=== PATIENT | male | born 1985 | race Caucasian/White ===

== ENCOUNTER 2022-03-17 21:18 | Emergency (ER) | payer OTHER, SELFPAY ==
[2022-03-17 21:20] VITALS: BP 133/85; PULSE 98; RESP 18; TEMP 37.2; O2SAT 99
--- NOTE | 2022-03-17 21:47 | ED.EXTPRO ---
HPI - Extremity Problem General Chief complaint: Extremity Problem,Nontraumatic Stated complaint: R leg Time Seen by Provider: 03/17/22 21:31 Source: patient History of Present Illness HPI Narrative: Patient presents with pain and redness to his right lower extremity. Ports his symptoms for the past 2 days getting progressively worse and is increasing swelling edema and pain. Also reports his leg feels warm. He did report subjective fevers yesterday but took some ibuprofen. Symptoms are worse today he wanted come to the ER for evaluation. Denies any focal numbness or weakness. He does report he bumped his leg on his tailgate 3 days ago but did not think much of it. Related Data Allergies Allergy/AdvReac Type Severity Reaction Status Date / Time clindamycin Allergy Unknown Unverified 07/02/15 12:32 Review of Systems Review of Systems: CONSTITUTIONAL: Subjective fevers EYES: Denies visual changes, redness, or discharge. ENT: Denies rhinorrhea, congestion, sore throat, or otalgia. CARDIOVASCULAR: Denies chest pain, palpitations, or edema. RESPIRATORY: Denies cough or dyspnea. GASTROINTESTINAL: Denies abdominal pain, nausea, vomiting, or diarrhea. GENITOURINARY: Denies dysuria or hematuria. SKIN: Denies rash or itching. MUSCULOSKELETAL: Denies back pain, joint pain, or myalgia. NEUROLOGIC: Denies headache, numbness, dizziness, or weakness. PSYCHIATRIC: Denies anxiety or depression. All systems reviewed & are unremarkable except as noted in HPI and below PMFSH Past Medical History Medical History (Updated 03/17/22 @ 21:51 by Michael Dill MD) Patient denies significant medical history Social History Social History (Updated 03/17/22 @ 21:48 by Michael Dill MD) Smoking status: Never smoker Alcohol intake: current Exam Narrative: GENERAL: Well-appearing, well-nourished, and in no acute distress. HEAD: Normocephalic, atraumatic. EYES: PERRLA and EOMI. ENT: Nares clear, no rhinorrhea or epistaxis. Mucous membranes moist. NECK: Supple. No masses. No JVD EXTREMITIES: Normal range of motion. Large area of erythema and warmth on the anterior aspect of the right lower leg there is a central abrasion there is no focal fluid collections no purulent drainage no fluctuance. SKIN: Warm, dry, no rash. NEURO: No focal deficits. Alert and oriented x3. PSYCH: Normal mood and affect. Course Vital Signs Vital signs: Vital Signs Temperature 37.2 C 03/17/22 21:20 Pulse Rate 98 03/17/22 21:20 Respiratory Rate 18 03/17/22 21:20 Blood Pressure 133/85 03/17/22 21:20 Pulse Oximetry 99 03/17/22 21:20 Temperature 37.2 C 03/17/22 21:20 Pulse Rate 98 03/17/22 21:20 Respiratory Rate 18 03/17/22 21:20 Blood Pressure 133/85 03/17/22 21:20 Pulse Oximetry 99 03/17/22 21:20 MDM - Extremity (Nontraumatic) MDM Narrative Medical decision making narrative: H&P as above, vss, pt looks clinically well, exam with warmth erythema and edema to the right lower extremity, llabs/img considered, symptomatic relief available as needed, on reevaluation pt continues to looks clinically well. Exam is most suggestive of cellulitis, dns abscess, necrotizing soft tissue infection, osteomyelitis, severe sepsis. plan to tx/monitor as op w/ pcm f/u findings/plan discussed with pt, pt agree/comfortable with plan, return precautions given Discharge Plan Discharge Clinical Impression: Cellulitis Qualifiers: Site of cellulitis: extremity Site of cellulitis of extremity: lower extremity Laterality: right Qualified Code(s): L03.115 - Cellulitis of right lower limb Patient Disposition: Home, Self-Care Condition: Improved Instructions: Antibiotic Form, Cellulitis (ED) Additional Instructions: Please return if your symptoms worsen or fail to improve. If you develop a fever, can not eat/drink anything or if you have any other concerns. Prescriptions: New cephalexin 500 mg capsule 500 mg PO QID 5 Days
[2022-03-17] MEDS: CEPHALEXIN 500 MG CAPSULE PO (21:53)
== END 2022-03-17 22:04 | disposition home or self-care (01) ==
LOC: ANHED 22:01
PROVIDERS: Emergency Provider Emergency Medicine
DX: L03.115 Cellulitis of right lower limb (principal)
CPT/HCPCS: 99283; A9270

== ENCOUNTER 2023-03-28 18:23 | Emergency (ER) | payer OTHER, SELFPAY ==
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
[2023-03-28 18:27] VITALS: BP 121/102; PULSE 84; RESP 16; TEMP 36.9; O2SAT 98
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
== END 2023-03-28 20:05 | disposition home or self-care (01) ==
PROVIDERS: Emergency Provider Physician Assistant
DX: S83.91XA Sprain of unspecified site of right knee, initial encounter (principal); V86.56XA Driver of dirt bike or motor/cross bike injured in nontraffic accident, initial encounter
CPT/HCPCS: 73562; 99283

== ENCOUNTER 2024-06-24 08:18 | Outpatient (CLI) | payer OTHER, SELFPAY ==
--- NOTE | ~2024-06-24 | US_ITS ---
COMPLETE ABDOMINAL ULTRASOUND Ordering provider: Dorothy Booker APRN History: . R10.31 - Right lower quadrant pain . Comparison: None. FINDINGS: LIVER: Normal size and echotexture. No perihepatic fluid collections are identified. Hyperechoic focu s is seen measuring 1 x 1 x 1.1 cm. Most likely hemangioma follow-up advised. GALLBLADDER: Unremarkable. No evidence for stones, sludge, gallbladder wall thickening or pericholecy stic fluid collections. A negative sonographic Horn's sign was noted. BILIARY DUCTS: No evidence for intra or extrahepatic biliary dilation. Common bile duct measures 5 mm in diameter which is within normal limits. PANCREAS: Not well demonstrated. SPLEEN: Normal size, echotexture and contour and measures 8.6 cm in length. KIDNEYS: Right measures 9.5x 4.6x 4.9 cm in length and the left 9.2x 4x 5.4 cm in length. There is no evidence for hydronephrosis, solid renal mass, renal calculi or perinephric fluid collections. No re nal cysts. UPPER ABDOMINAL AORTA: Normal in caliber. IVC: Patent. FREE FLUID: None. No definite abnormality seen in the right lower quadrant. IMPRESSION: Hyperechoic area in the liver most likely hemangioma. Otherwise, Unremarkable complete ultrasound of the abdomen. Reviewed, dictated and finalized at location A. IMPRESSION: Hyperechoic area in the liver most likely hemangioma. Otherwise, Unremarkable c omplete ultrasound of the abdomen.
== END 2024-06-24 08:19 ==
LOC: GOSHIMG 08:19
PROVIDERS: PCP Family Medicine; Visit Provider Nurse Practitioner Adult Health
DX: R10.31 Right lower quadrant pain (principal)
CPT/HCPCS: 76700

== ENCOUNTER 2024-07-12 00:42 | Day surgery (SDC) | payer OTHER, SELFPAY ==
[2024-06-28 12:38] VITALS: BMI 30.7
[2024-07-12 08:43] VITALS: BP 132/85; PULSE 64; RESP 18; TEMP 36.2; O2SAT 100; BMI 30.1
[2024-07-12] MEDS: LACTATED RINGERS 1,000 ML 150 ML IV CONT (09:01)
--- NOTE | 2024-07-12 09:17 | WPDANESEPPF ---
Anes - Initial Pre Proc Eval Procedure: Operation Date: 07/12/24 10:00 Proposed Procedures p Colonoscopy - Greg Sagastume MD Date/Time: 07/12/24 09:17 Surgeon: Greg Sagastume MD Pre Op Diagnosis: Melena Patient Data Age: 38 Gender: M Height: 1.68 m Weight: 84.7 kg Last Vital Signs Temp 97.1 F L 07/12/24 08:43 Pulse 64 07/12/24 08:43 Resp 18 07/12/24 08:43 BP 132/85 07/12/24 08:43 Pulse Ox 100 07/12/24 08:43 O2 Del Method Room Air 07/12/24 08:43 Allergies Allergy/AdvReac Type Severity Reaction Status Date / Time clindamycin Allergy Unknown Unknown Verified 07/12/24 08:49 Home Medications Medication Instructions Recorded Confirmed Type No Home Medications 04/10/23 07/12/24 History Patient hx anesthesia problems: none Family hx anesthesia problems: none Results Review: All pre-operative results and documents have been reviewed as part of the pre-operative evaluation. [facility] Past Medical History Medical History Effusion, right knee Hematochezia Lipid screening Patient denies significant medical history Right lower quadrant pain Thyroid disorder screen Family History Family History Grandparent Colon cancer Social History Social History Smoking status: Never smoker Alcohol intake: current Drinks per week: 2 Substance use: never Substance use type: does not use Do You Feel Safe in your Home?: Yes Lack of Transportation: No Lack of Food: Never True Current Housing: I Have Housing Concerned About Future Housing: No Difficulty Paying Gas/Electric Bills: No Difficulty Paying for Meds: No Currently Unemployed: No Education: Trade/Vocational Certificate Difficulty w/ Childcare or Family Care: No Living arrangements: with family Occupation/Education: occupation Additional occupation/education comments: [employer] Gender identity (if verbalized by the patient): Male Spiritual care concerns: No Anes - Eval Final PreProcedure Day of Procedure 07/12/24 09:17 Patient weight: normal Heart: regular rate and rhythm Lungs: clear to auscultation Airway: Mallampati scale Neurological: alert and oriented Last oral intake: >/= 8 hours ASA classification: II Emergent: no Anesthetic plan: delay Anesthesia type and monitoring: general and standard monitoring Results Review: All pre-operative results and documents have been reviewed as part of the pre-operative evaluation. Obesity, BMI 30. Hx of abdominal pain, now for colonoscopy. Informed Consent: The patient's anesthetic plan and its attendant risks and benefits were discussed with the patient/family/POA. Questions were solicited and answers provided to the satisfaction of the patient/family/POA.
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
[2024-07-12 09:42] VITALS: BP 100/68; PULSE 72; RESP 16; O2SAT 97
[2024-07-12 09:52] VITALS: BP 113/72; PULSE 70; RESP 18; O2SAT 99
[2024-07-12 10:02] VITALS: BP 113/76; PULSE 74; RESP 20; O2SAT 100
== END 2024-07-12 10:11 | disposition home or self-care (01) ==
PROVIDERS: PCP Family Medicine; Visit Provider Internal Medicine Gastroenterology
PROC: 0DJD8ZZ Inspection of Lower Intestinal Tract, Via Natural or Artificial Opening Endoscopic (ICD-10-PCS; CPT 45378; principal; 2024-07-12 10:00)
DX: D12.4 Benign neoplasm of descending colon (principal); K64.8 Other hemorrhoids
CPT/HCPCS: 45385; 88305; J1596; J2704; J7120

== ENCOUNTER 2024-09-08 09:00 | Emergency (ER) | payer OTHER, SELFPAY ==
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
[2024-09-08 09:16] VITALS: BP 130/91; PULSE 69; RESP 16; TEMP 36.8; O2SAT 99
[2024-09-08 09:50] LABS: EDSTREPNEGPOS1 Negative (Negative)
== END 2024-09-08 09:50 | disposition home or self-care (01) ==
PROVIDERS: Emergency Provider Nurse Practitioner; PCP Family Medicine
DX: J06.9 Acute upper respiratory infection, unspecified (principal); R09.82 Postnasal drip
CPT/HCPCS: 87081; 87880; 99213; G0463

== ENCOUNTER 2024-09-12 08:34 | Outpatient (CLI) | payer OTHER, SELFPAY ==
--- NOTE | ~2024-09-12 | US_ITS ---
EXAMINATION: US scrotum doppler DATE: 09/12/2024 09:01 INDICATION: Right Testicular pain (radiating from the groin into the right testicle) TECHNIQUE: Sonographic evaluation of the scrotum was performed assessing grayscale appearance and col or Doppler flow. Spectral Doppler evaluation was also performed. COMPARISON: None. FINDINGS: RIGHT TESTICLE: The right testicle measures 5 x 3.5 x 2.6 cm. Arterial and venous flow are present. RIGHT EPIDIDYMIS: The right epididymis measures 14 mm Pre-Valsalva vasculature measurement less than 3 mm. LEFT TESTICLE: The left testicle measures 5 x 3.2 x 2.9 cm. Arterial and venous flow are demonstrated. LEFT EPIDIDYMIS: The left epididymis measures 6 mm. Pre-Valsalva vasculature measurement less than 3 mm. Incidentally noted is a spontaneously reducible fat-containing right inguinal hernia IMPRESSION: Incidentally noted is a spontaneously reducible fat-containing right inguinal hernia. Otherwise, unremarkable sonographic evaluation of the scrotum, as detailed above. Given that the patient describes his testicular pain on the right as radiating from his groin, perhap s further evaluation regarding possible right inguinal hernia repair would be helpful. Reviewed, dictated and finalized at location A. IMPRESSION: Incidentally noted is a spontaneously reducible fat-containing right inguinal h ernia. Otherwise, unremarkable sonographic evaluation of the scrotum, as detailed abov e. Given that the patient describes his testicular pain on the right as radiating from his groin, perhaps further evaluation regarding possible right inguinal he rnia repair would be helpful.
== END 2024-09-12 08:35 | disposition home or self-care (01) ==
LOC: GOSHIMG 08:35
PROVIDERS: PCP Family Medicine; Visit Provider Family Medicine
DX: N50.819 Testicular pain, unspecified (principal)
CPT/HCPCS: 76870; 93976

== ENCOUNTER 2024-10-27 13:34 | Emergency (ER) | payer OTHER, SELFPAY ==
--- NOTE | ~2024-10-27 | CT_ITS ---
EXAMINATION: CT abdomen pelvis w con DATE: 10/27/2024 14:50 INDICATION: Left lower quadrant abdominal pain for 3 days TECHNIQUE: Computed tomography (CT) of the abdomen and pelvis was performed with 100 CC Omnipaque 350 intravenous contrast. Automated exposure control and iterative reconstruction technique were employe d. Exam dose: 422.98 mGy-cm total exam DLP. COMPARISON: 06/24/2024 complete abdominal ultrasound FINDINGS: An approximately 9 mm subtle hypoattenuating area is noted in the right hepatic lobe, which may correspond to a similar size hyperechoic sonographic focus noted 06/24/2044, possibly a small any ngioma. The liver is otherwise unremarkable. The gallbladder appears normal. No bile duct or pancreatic duct dilatation. No pancreatic mass lesion or calcification. Normal splenic size. Normal morphology of the adrenal glands. 1.3 cm upper pole right renal cyst and very small lower pole right renal probable cyst. The kidneys a re otherwise unremarkable. No urinary tract calculus or hydroureteronephrosis. Normal caliber of the abdominal aorta. No intraperitoneal or retroperitoneal or pelvic mass lesion or adenopathy or ascites. Normal appendix. There is focal pericolic soft tissue fat infiltration at the junction of the distal descending and pr oximal sigmoid colon, suggesting mild focal uncomplicated acute diverticulitis. No bowel obstruction or intraperitoneal free air. The urinary bladder is unremarkable. Small fat-containing right inguinal hernia. Small fat-containing umbilical hernia. No suspicious osteolytic or osteoblastic lesion. IMPRESSION: Mild pericolic fat stranding at junction of distal descending and proximal sigmoid colon , suggesting mild uncomplicated diverticulitis 1.3 cm upper pole right renal cyst, very small lower pole right renal cyst Normal appendix Probable 9 mm hepatic hemangioma Reviewed, dictated and finalized at [facility]. Reviewed, dictated and finalized at [facility]. S OFFICER IMPRESSION: Mild pericolic fat stranding at junction of distal descending and proximal sigmoid colon, suggesting mild uncomplicated diverticulitis 1.3 cm upper pole right renal cyst, very small lower pole right renal cyst Normal appendix Probable 9 mm hepatic hemangioma
[2024-10-27 13:35] VITALS: BP 131/85; PULSE 66; RESP 18; TEMP 36.7; O2SAT 99
--- NOTE | 2024-10-27 13:36 | ED.ABDPAIN ---
HPI - Abdominal Pain General Chief Complaint: Abdominal Pain Stated Complaint: pain in groin area Time Seen by Provider: 10/27/24 13:36 Source: patient Mode of arrival: ambulatory Limitations: no limitations History of Present Illness HPI narrative: patient is a 38-year-old male with left lower quadrant / left lower pelvic / groin pain for the past 3-4 days. It is sharp in nature and is painful on movement of the body. He has a hernia on the right side which has repair next year. MD elicited complaint: abdominal pain ( Left lower quadrant) Pertinent past history: other ( Right-sided inguinal hernia) Onset (ago): day(s) (2-3) Pain Consistency: intermittent Location: LLQ, pelvis ( left) and groin ( left) Severity: moderate Pain scale (0-10): 7 Quality: sharp Radiation: none Migration to: no migration Exacerbating factors: movement Relieving factors: rest Context: confirms history of similar episodes ( on the right side of) Associated symptoms: denies other symptoms Treatments prior to arrival: other ( none) Related Data Allergies Allergy/AdvReac Type Severity Reaction Status Date / Time clindamycin Allergy Unknown Unknown Verified 10/27/24 13:45 Review of Systems Review of Systems: All systems reviewed & are unremarkable except as noted in HPI and below Constitutional: Constitutional: Reports no additional constitutional complaints Eyes: Eyes: Reports no additional eye complaints ENT: Reports system reviewed and no additional complaints, except as documented Cardiovascular: Cardiovascular: Reports no additional cardiovascular complaints Respiratory: Respiratory: Reports no additional respiratory complaints Gastrointestinal: Gastrointestinal: Reports no additional gastrointestinal complaints Genitourinary: Genitourinary: Reports no additional male genitourinary complaints Musculoskeletal: Musculoskeletal: Reports no additional musculoskeletal complaints Integumentary/Breasts: Skin/Breast: Reports system reviewed and no additional complaints, except as docu Neurologic: Reports system reviewed and no additional complaints, except as documented Psychiatric: Psychiatric: Reports no additional psychiatric complaints Endocrine: Endocrine: Reports no additional endocrine complaints Hematologic/Lymphatic: Hematologic/Lymphatic: Reports no additional hematologic/lymphatic complaints Allergic/Immunologic: Allergic/Immunologic: Reports no additional allergic/immunologic complaints PMFSH Past Medical History Medical History Effusion, right knee Hematochezia Lipid screening Patient denies significant medical history Right lower quadrant pain Thyroid disorder screen Family History Family History Grandparent Colon cancer Social History Social History Smoking status: Never smoker Alcohol intake: current Drinks per week: 2 Substance use: never Substance use type: does not use Do You Feel Safe in your Home?: Yes Lack of Transportation: No Lack of Food: Never True Current Housing: I Have Housing Concerned About Future Housing: No Difficulty Paying Gas/Electric Bills: No Difficulty Paying for Meds: No Currently Unemployed: No Education: Associate Degree Difficulty w/ Childcare or Family Care: No Living arrangements: with family Occupation/Education: occupation Additional occupation/education comments: [employer] Gender identity (if verbalized by the patient): Male Spiritual care concerns: No Exam Const: General: healthy appearing Nutritional Appearance: well nourished Orientation/consciousness: patient oriented x3 Limitations: no limitations HENMT: Head: normal to inspection Ears: external ears normal Face/Nose/Sinus: Normal external nose present Eyes: Conjunctivae: conjunctivae normal Pupils: Equal, round and reactive pupils present EOM: EOMs intact bilaterally Neck: Neck: normal visual inspection Chest: Chest palpation & inspection: normal inspection of the chest Resp: Effort & Inspection: normal respiratory effort and not labored Auscultation: clear to auscultation bilaterally and no crackles Cardio: Rate: regular rate Rhythm: regular rhythm Heart sounds: no murmurs GI: Inspection: non-distended GI Palp: Yes Soft to palpation, Yes Tenderness to palpation present (GI) ( left lower quadrant / pelvis /groin), No Guarding due to palpation present (GI), No Rigid due to palpation, Yes Hernia present ( questionable left lower quadrant on examination), No Palpable mass present and No Rebound tenderness present Auscultation: normal bowel sounds : General: Yes bladder normal to palpation Back/Spine/Pelvis: Back: no CVA tenderness Skin: General skin exam: normal color Rashes: no rashes Wounds: no wounds Neuro: General: patient oriented x3 Cranial nerves: Yes Nystagmus not present Speech: normal speech Extrem: General: normal to inspection Psych: Mental Status: mental status grossly normal Affect: normal affect Attitude: cooperative Course Vital Signs Vital signs: Vital Signs Temperature 36.7 C 10/27/24 13:35 Pulse Rate 66 10/27/24 13:35 Respiratory Rate 18 10/27/24 13:35 Blood Pressure 131/85 10/27/24 13:35 Pulse Oximetry 99 10/27/24 13:35 Oxygen Delivery Room Air 10/27/24 13:35 Temperature 36.7 C 10/27/24 13:35 Pulse Rate 65 10/27/24 14:24 Respiratory Rate 16 10/27/24 14:24 Blood Pressure 110/82 10/27/24 14:24 Pulse Oximetry 99 10/27/24 14:24 Oxygen Delivery Room Air 10/27/24 14:24 MDM - Abdominal Pain MDM Narrative Medical decision making narrative: patient is a 38-year-old male with left lower quadrant pain for the past 2-3 days. He has a hernia on the right needing repair in the next year. We will go ahead and do labs and a CT scan to rule out a new hernia on the left. Lab Data Attestation: I reviewed the patient's lab results. 10/27/24 14:05 10/27/24 14:05 Labs: Lab Results 10/27/24 Range/Units 14:05 WBC 8.4 (4.8-10.8) K/mm3 RBC 4.84 (4.70-6.10) M/mm3 Hgb 15.1 (14.0-18.0) g/dL Hct 42.9 (40.0-54.0) % MCV 88.6 (78.0-102.0) fL MCH 31.2 H (27.0-31.0) pg MCHC 35.2 (32-36) g/dL RDW 11.9 (11.6-14.4) % Plt Count 289 (150-420) K/mm3 MPV 9.2 (8.7-11.0) fl Immature Gran % (Auto) 0.5 H (0.0-0.0) % Neut % (Auto) 59.6 (50.0-70.0) % Lymph % (Auto) 25.2 (18.0-42.0) % [place] % (Auto) 8.6 (2.0-11.0) % Eos % (Auto) 5.4 (1.0-6.0) % Baso % (Auto) 0.7 (0.0-1.0) % Lymph # (Auto) 2.12 (1.10-4.50) K/mm3 [place] # (Auto) 0.72 (0.10-0.90) K/mm3 Eos # (Auto) 0.45 (0.02-0.50) K/mm3 Baso # (Auto) 0.06 (0.00-0.10) K/mm3 Abs Immat Gran (auto) 0.04 H (0.00-0.00) K/mm3 Absolute Neuts (auto) 5.02 (1.70-7.20) K/mm3 Absolute Nucleated RBC 0.00 (0.00-0.00) K/mm3 Nucleated RBC % 0.0 (0-0.0) % Sodium 140 (136-145) mmol/L Potassium 3.9 (3.5-5.1) mmol/L Chloride 103 (98-108) mmol/L Carbon Dioxide 28 (21-32) mmol/L Anion Gap 9 (4-12) mmol/L BUN 13 (7-18) mg/dL Creatinine 1.10 (0.70-1.30) mg/dL Estim Creat Clear Calc 84 ml/min Estimated GFR > 60 (59 - ) Glucose 84 (70-99) mg/dL Calculated Osmolality 289 (285-295) mOsm/kg Calcium 8.7 (8.5-10.1) mg/dL Total Bilirubin 0.6 (0.00-1.00) mg/dL AST 16 (15-37) U/L ALT 34 (16-63) U/L Alkaline Phosphatase 83 (46-116) U/L Total Protein 6.8 (6.4-8.2) g/dL Albumin 3.7 (3.4-5.0) g/dL Urine Color Light yellow (Yellow) Urine Appearance Clear (Clear) Urine pH 6.0 (5.0-8.0) Ur Specific [place] >= 1.030 H (1.010-1.020) Urine Protein Negative (Negative) Urine Glucose (UA) Negative (Negative) Urine Ketones Negative (Negative) Ur Blood (Man) Negative (Negative) Urine Nitrate Negative (Negative) Urine Bilirubin Negative (Negative) Urine Urobilinogen 0.2 (0.2-1.0) mg/dL Leukocyte Esterase Rfl Negative (Negative) CANELO/UL Imaging Data Attestation: I personally reviewed and interpreted this imaging study as follows: Radiologist's impression: ITS Impressions Abdomen/Pelvis CT 10/27/24 14:54 IMPRESSION: Mild pericolic fat stranding at junction of distal descending and proximal sigmoid colon, suggesting mild uncomplicated diverticulitis 1.3 cm upper pole right renal cyst, very small lower pole right renal cyst Normal appendix Probable 9 mm hepatic hemangioma Discharge Plan Discharge Clinical Impression: Diverticulitis Patient Disposition: Home, Self-Care Condition: Stable Instructions: Antibiotic Form, Diverticulitis (ED) Prescriptions: New ciprofloxacin HCl [Cipro] 500 mg tablet 500 mg PO BID 10 Days Qty: 20 0RF metronidazole 500 mg tablet 500 mg PO BID 10 Days Qty: 20 0RF Follow-up/Referrals: UNKNOWN,DOCTOR [Non-Staff] - Time of Disposition: 15:10
[2024-10-27 14:10] LABS: Basophils Absolute Auto 0.06 K/mm3 (0.00-0.10); Basophils Percent Auto 0.7 % (0.0-1.0); Eosinophils Absolute Auto 0.45 K/mm3 (0.02-0.50); Eosinophils Percent Auto 5.4 % (1.0-6.0); Hematocrit 42.9 % (40.0-54.0); Hemoglobin 15.1 g/dL (14.0-18.0); Immature Granulocyte Absolute 0.04 K/mm3 (0.00-0.00); Immature Granulocyte Percent A 0.5 % (0.0-0.0); Lymphocytes Absolute Auto 2.12 K/mm3 (1.10-4.50); Lymphocytes Percent Auto 25.2 % (18.0-42.0); Mean Corpuscular HGB Conc 35.2 g/dL (32-36); Mean Corpuscular Hemoglobin 31.2 pg (27.0-31.0); Mean Corpuscular Volume 88.6 fL (78.0-102.0); Mean Platelet Volume 9.2 fl (8.7-11.0); Monocytes Absolute Auto 0.72 K/mm3 (0.10-0.90); Monocytes Percent Auto 8.6 % (2.0-11.0); Neutrophils Absolute Auto 5.02 K/mm3 (1.70-7.20); Neutrophils Percent Auto 59.6 % (50.0-70.0); Platelet Count Result 289 K/mm3 (150-420); Red Blood Count 4.84 M/mm3 (4.70-6.10); Red Cell Distribution Width 11.9 % (11.6-14.4); White Blood Count 8.4 K/mm3 (4.8-10.8)
[2024-10-27 14:24] VITALS: BP 110/82; PULSE 65; RESP 16; O2SAT 99
[2024-10-27 14:25] LABS: Alanine Aminotransferase 34 U/L (16-63); Albumin Level 3.7 g/dL (3.4-5.0); Alkaline Phosphatase 83 U/L (46-116); Anion Gap 9 mmol/L (4-12); Aspartate Amino Transferase 16 U/L (15-37); Bilirubin,Total 0.6 mg/dL (0.00-1.00); Blood Urea Nitrogen 13 mg/dL (7-18); Calcium 8.7 mg/dL (8.5-10.1); Carbon Dioxide 28 mmol/L (21-32); Chloride 103 mmol/L (98-108); Estimated CRCL calculation 84 ml/min; Estimated Glomerular Filt Rate > 60; Glucose 84 mg/dL (70-99); Osmolality Calculated 289 mOsm/kg (285-295); Potassium 3.9 mmol/L (3.5-5.1); Sodium 140 mmol/L (136-145); Total Protein 6.8 g/dL (6.4-8.2)
[2024-10-27 14:38] LABS: Add Urine Microscopic? NO; Appearance Urine Clear (Clear); Bilirubin Urine Negative (Negative); Blood Urine Negative (Negative); Color Urine Light Yellow (Yellow); Glucose Urine UA Negative (Negative); Ketones Urine Negative (Negative); Leukocyte Esterase Ur Negative LEU/UL (Negative); Nitrate Urine Negative (Negative); Protein Urine Negative (Negative); Specific Grav Ur >= 1.030 (1.010-1.020); Urobilinogen Urine 0.2 mg/dL (0.2-1.0)
--- NOTE | 2024-10-27 14:38 | PC.NURSE ---
patient taken down to CT
--- NOTE | 2024-10-27 14:47 | PC.NURSE ---
patient back in room from ct
[2024-10-27 14:50] VITALS: BP 116/87; PULSE 60; RESP 16; O2SAT 100
[2024-10-27 15:17] VITALS: BP 131/96; PULSE 62; RESP 17; TEMP 36.8; O2SAT 99
== END 2024-10-27 15:17 | disposition home or self-care (01) ==
PROVIDERS: Emergency Provider Emergency Medicine; PCP Family Medicine
DX: K57.92 Diverticulitis of intestine, part unspecified, without perforation or abscess without bleeding (principal)
CPT/HCPCS: 36415; 74177; 80053; 81003; 85025; 99284; Q9967

== ENCOUNTER 2024-11-15 09:21 | Emergency (ER) | payer OTHER, SELFPAY ==
--- NOTE | ~2024-11-15 | CT_ITS ---
EXAMINATION: CT abdomen pelvis w con DATE: 11/15/2024 10:47 INDICATION: 2 days of nausea and diarrhea TECHNIQUE: Computed tomography (CT) of the abdomen and pelvis was performed with 100 mL Omnipaque-350 intravenous contrast. Automated exposure control and iterative reconstruction technique were employe d. The dose-length product was 563.36 mGy-cm. COMPARISON: 10/27/2024 FINDINGS: Dependent atelectasis in the bilateral lower lobes. Heart size is normal. No pericardial or pleural e ffusion. 1 cm hypodense lesion in the right hepatic lobe which appears to correspond to a hyperechoic lesion on prior ultrasound which would be consistent with and statistically most likely to represent a hemangioma. Gallbladder, spleen, pancreas, bilateral adrenal glands and left kidney are normal. 1 cm right renal cyst. Diffuse mild colonic wall thickening suspicious for mild colitis. Small bowel an d appendix are normal. Bladder is normal. No free intraperitoneal gas or fluid. No pathologically enl arged abdominal or pelvic lymphadenopathy. Bones are unremarkable. IMPRESSION: 1. Diffuse colonic wall thickening suspicious for mild colitis which could be infectious or inflammat ory in etiology.. Reviewed, dictated and finalized at [facility]. WARE ENGINEERING ANALYST IMPRESSION: 1. Diffuse colonic wall thickening suspicious for mild colitis which could be i nfectious or inflammatory in etiology..
[2024-11-15 09:21] VITALS: BP 125/93; PULSE 68; RESP 16; TEMP 36.4; O2SAT 96
--- NOTE | 2024-11-15 09:36 | ED_ITS ---
HPI - General Adult General Chief complaint: Nausea/Vomiting/Diarrhea Stated complaint: abdominal pain and diarrhea Time Seen by Provider: 11/15/24 09:36 History of Present Illness HPI narrative: 38-year-old white male was seen in the emergency room 10/27/2024 mild uncomplicated diverticulitis and treated with Cipro 500 twice a day and Flagyl 500 mg twice a day for 10 days. He got better his pain went away but then he started having diarrhea he has had about 10 diarrheal stools since yesterday 24 hours ago loose nonbloody. Denies any vomiting but he feels nauseous. Denies any fever cough runny nose sore throat dizziness or lightheadedness rash or itching bleeding or bruising swelling lumps or bumps problems voiding or any other complaints. Abdomen/Pelvis CT 10/27/24 14:54 IMPRESSION: Mild pericolic fat stranding at junction of distal descending and proximal sigmoid colon, suggesting mild uncomplicated diverticulitis Related Data Allergies Allergy/AdvReac Type Severity Reaction Status Date / Time clindamycin Allergy Unknown Unknown Verified 11/15/24 09:33 Review of Systems 2 Review of Systems: All systems reviewed & are unremarkable except as noted in HPI and below PMFSH Past Medical History Medical History Right lower quadrant pain Hematochezia Lipid screening Thyroid disorder screen Effusion, right knee Patient denies significant medical history Family History Family History Grandparent Colon cancer Social History Social History Smoking status: Never smoker Alcohol intake: current Drinks per week: 2 Substance use: never Substance use type: does not use Do You Feel Safe in your Home?: Yes Lack of Transportation: No Lack of Food: Never True Current Housing: I Have Housing Concerned About Future Housing: No Difficulty Paying Gas/Electric Bills: No Difficulty Paying for Meds: No Currently Unemployed: No Education: Associate Degree Difficulty w/ Childcare or Family Care: No Living arrangements: with family Occupation/Education: occupation Additional occupation/education comments: [employer] Gender identity (if verbalized by the patient): Male Spiritual care concerns: No Comments History of a right inguinal hernia. History of diverticulitis Exam 2 Narrative: ?White male patient with no apparent distress.? Head normocephalic, atraumatic.? Eyes conjunctiva pink sclera nonicteric.? Extraocular movements are intact.? Ears externally normal.? Oropharynx is clear with moist mucous membranes without exudates.? Neck is supple nontender no lymphadenopathy.? Back is nontender.? Lungs are clear.? Heart is regular rate and rhythm without murmurs gallops or rubs.? Chest wall nontender. Abdomen is soft and nontender no hepatosplenomegaly or masses no CVA tenderness no abdominal bruits.? Extremities no cyanosis clubbing or edema.? Skin is warm and dry without rashes or lesions.? Neurological patient is alert and oriented x4.? Motor and sensory grossly intact.? Gait is normal. Course Vital Signs Vital signs: Vital Signs Temperature 36.4 C 11/15/24 09:21 Pulse Rate 68 11/15/24 09:21 Respiratory Rate 16 11/15/24 09:21 Blood Pressure 125/93 H 11/15/24 09:21 Pulse Oximetry 96 11/15/24 09:21 Oxygen Delivery Room Air 11/15/24 09:21 Temperature 36.4 C 11/15/24 09:21 Pulse Rate 62 11/15/24 10:52 Respiratory Rate 14 11/15/24 10:52 Blood Pressure 115/85 11/15/24 10:52 Pulse Oximetry 98 11/15/24 10:52 Oxygen Delivery Room Air 11/15/24 10:52 Medical Decision Making [facility] Narrative Medical decision making narrative: Patient placed in room: to ? History and physical was performed. CT abdomen pelvis with IV contrast:1. Diffuse colonic wall thickening suspicious for mild colitis which could be infectious or inflammatory in etiology.. UA specific gravity of 1.030 otherwise negative CMP normal CBC unremarkable C diff positive Independent Historian: patient External Source Review: Differential Dx includes but not limited to: C diff diverticulitis complicated bowel obstruction ileus gastritis Medications were Reviewed: home meds reviewed Medications given: Zofran 4 mg Independently Interpreted by me: labs independently interpreted by me. CT abdomen pelvis with IV contrast looked unremarkable was independently interpreted by me. Shared decision Making: evaluation was discussed all questions were asked and answered and patient agreed with the plan. Social Situation Impacting Patients Care: Discussed with Dr. LOYA DIAGNOSIS: Clostridium difficile colitis DISPOSITION : discharge home CONDITION AT DISCHARGE: stable Vital Signs Vital Signs: Vital Signs Temperature 36.4 C 11/15/24 09:21 Pulse Rate 68 11/15/24 09:21 Respiratory Rate 16 11/15/24 09:21 Blood Pressure 125/93 H 11/15/24 09:21 Pulse Oximetry 96 11/15/24 09:21 Oxygen Delivery Room Air 11/15/24 09:21 Temperature 36.4 C 11/15/24 09:21 Pulse Rate 62 11/15/24 10:52 Respiratory Rate 14 11/15/24 10:52 Blood Pressure 115/85 11/15/24 10:52 Pulse Oximetry 98 11/15/24 10:52 Oxygen Delivery Room Air 11/15/24 10:52 Lab Data 11/15/24 10:02 11/15/24 10:02 Labs: Lab Results 11/15/24 11/15/24 Range/Units 10:02 10:05 WBC 8.3 (4.8-10.8) K/mm3 RBC 4.98 (4.70-6.10) M/mm3 Hgb 15.5 (14.0-18.0) g/dL Hct 44.2 (40.0-54.0) % MCV 88.8 (78.0-102.0) fL MCH 31.1 H (27.0-31.0) pg MCHC 35.1 (32-36) g/dL RDW 11.9 (11.6-14.4) % Plt Count 289 (150-420) K/mm3 MPV 8.9 (8.7-11.0) fl Immature Gran % (Auto) 0.4 H (0.0-0.0) % Neut % (Auto) 64.8 (50.0-70.0) % Lymph % (Auto) 19.6 (18.0-42.0) % [place] % (Auto) 11.0 (2.0-11.0) % Eos % (Auto) 3.4 (1.0-6.0) % Baso % (Auto) 0.8 (0.0-1.0) % Lymph # (Auto) 1.62 (1.10-4.50) K/mm3 [place] # (Auto) 0.91 H (0.10-0.90) K/mm3 Eos # (Auto) 0.28 (0.02-0.50) K/mm3 Baso # (Auto) 0.07 (0.00-0.10) K/mm3 Abs Immat Gran (auto) 0.03 H (0.00-0.00) K/mm3 Absolute Neuts (auto) 5.34 (1.70-7.20) K/mm3 Absolute Nucleated RBC 0.00 (0.00-0.00) K/mm3 Nucleated RBC % 0.0 (0-0.0) % Sodium 141 (136-145) mmol/L Potassium 3.7 (3.5-5.1) mmol/L Chloride 102 (98-108) mmol/L Carbon Dioxide 28 (21-32) mmol/L Anion Gap 11 (4-12) mmol/L BUN 13 (7-18) mg/dL Creatinine 1.10 (0.70-1.30) mg/dL Estim Creat Clear Calc 84 ml/min Estimated GFR > 60 (59 - ) Glucose 80 (70-99) mg/dL Calculated Osmolality 291 (285-295) mOsm/kg Calcium 9.1 (8.5-10.1) mg/dL Total Bilirubin 0.7 (0.00-1.00) mg/dL AST 22 (15-37) U/L ALT 51 (16-63) U/L Alkaline Phosphatase 68 (46-116) U/L Total Protein 6.9 (6.4-8.2) g/dL Albumin 3.8 (3.4-5.0) g/dL Urine Color Yellow (Yellow) Urine Appearance Clear (Clear) Urine pH 5.5 (5.0-8.0) Ur Specific [place] >= 1.030 H (1.010-1.020) Urine Protein Negative (Negative) Urine Glucose (UA) Negative (Negative) Urine Ketones Negative (Negative) Ur Blood (Man) Negative (Negative) Urine Nitrate Negative (Negative) Urine Bilirubin Negative (Negative) Urine Urobilinogen 0.2 (0.2-1.0) mg/dL Ur Leukocyte Esterase Negative (Negative) C. difficile (PCR) Positive A* (NEGATIVE) Discharge Plan Discharge Clinical Impression: Clostridium difficile colitis Patient Disposition: Home, Self-Care Condition: Stable Instructions: Antibiotic Form, C. Diff (Clostridioides Difficile) Infection (ED) Additional Instructions: Take fidaxomicin 200 mg twice per day for 10 days. Return if you get worse or you develop any new symptoms. Patient Language: Austrian Prescriptions: New fidaxomicin 200 mg tablet 200 mg PO Q12H 10 Days Qty: 20 0RF vancomycin 125 mg capsule 125 mg PO BID 10 Days Qty: 20 0RF Rx Instructions: take 125 mg 4 times per day for 14 days; 2 times per day for 7 days; once daily for 7 days; once every 2-3 days for 2-8 weeks Follow-up/Referrals: Bj Alfaro MD [Primary Care Provider] - Time of Disposition: 12:00
[2024-11-15 10:08] LABS: Basophils Absolute Auto 0.07 K/mm3 (0.00-0.10); Basophils Percent Auto 0.8 % (0.0-1.0); Eosinophils Absolute Auto 0.28 K/mm3 (0.02-0.50); Eosinophils Percent Auto 3.4 % (1.0-6.0); Hematocrit 44.2 % (40.0-54.0); Hemoglobin 15.5 g/dL (14.0-18.0); Immature Granulocyte Absolute 0.03 K/mm3 (0.00-0.00); Immature Granulocyte Percent A 0.4 % (0.0-0.0); Lymphocytes Absolute Auto 1.62 K/mm3 (1.10-4.50); Lymphocytes Percent Auto 19.6 % (18.0-42.0); Mean Corpuscular HGB Conc 35.1 g/dL (32-36); Mean Corpuscular Hemoglobin 31.1 pg (27.0-31.0); Mean Corpuscular Volume 88.8 fL (78.0-102.0); Mean Platelet Volume 8.9 fl (8.7-11.0); Monocytes Absolute Auto 0.91 K/mm3 (0.10-0.90); Neutrophils Absolute Auto 5.34 K/mm3 (1.70-7.20); Neutrophils Percent Auto 64.8 % (50.0-70.0); Platelet Count Result 289 K/mm3 (150-420); Red Blood Count 4.98 M/mm3 (4.70-6.10); Red Cell Distribution Width 11.9 % (11.6-14.4); White Blood Count 8.3 K/mm3 (4.8-10.8)
[2024-11-15] MEDS: ONDANSETRON HCL ODT 4 MG TABLET PO (10:13)
[2024-11-15 10:20] LABS: Add Urine Microscopic? NO; Appearance Urine Clear (Clear); Bilirubin Urine Negative (Negative); Blood Urine Negative (Negative); Color Urine Yellow (Yellow); Glucose Urine UA Negative (Negative); Ketones Urine Negative (Negative); Leukocyte Esterase Ur Negative (Negative); Nitrate Urine Negative (Negative); Protein Urine Negative (Negative); Specific Grav Ur >= 1.030 (1.010-1.020); Urobilinogen Urine 0.2 mg/dL (0.2-1.0); pH Urine 5.5 (5.0-8.0)
[2024-11-15 10:30] LABS: Alanine Aminotransferase 51 U/L (16-63); Albumin Level 3.8 g/dL (3.4-5.0); Alkaline Phosphatase 68 U/L (46-116); Anion Gap 11 mmol/L (4-12); Aspartate Amino Transferase 22 U/L (15-37); Bilirubin,Total 0.7 mg/dL (0.00-1.00); Blood Urea Nitrogen 13 mg/dL (7-18); Calcium 9.1 mg/dL (8.5-10.1); Carbon Dioxide 28 mmol/L (21-32); Chloride 102 mmol/L (98-108); Estimated CRCL calculation 84 ml/min; Estimated Glomerular Filt Rate > 60; Glucose 80 mg/dL (70-99); Osmolality Calculated 291 mOsm/kg (285-295); Potassium 3.7 mmol/L (3.5-5.1); Sodium 141 mmol/L (136-145); Total Protein 6.9 g/dL (6.4-8.2)
[2024-11-15 10:52] VITALS: BP 115/85; PULSE 62; RESP 14; O2SAT 98
[2024-11-15 11:08] LABS: Toxigenic C. Diff POSITIVE (NEGATIVE)
[2024-11-15 12:07] VITALS: BP 118/82; PULSE 64; RESP 20; TEMP 36.7; O2SAT 98
== END 2024-11-15 12:09 | disposition home or self-care (01) ==
PROVIDERS: Emergency Provider Emergency Medicine; PCP Family Medicine
DX: A04.72 Enterocolitis due to Clostridium difficile, not specified as recurrent (principal)
CPT/HCPCS: 36415; 74177; 80053; 81003; 85025; 87493; 99284; A9270; Q9967